=== PATIENT | male | born 1965 | race African-American/Black ===

== ENCOUNTER 2017-12-22 08:48 | Day surgery (SDC) | payer OTHER | END 2017-12-22 15:55 | disposition home or self-care (01) | LOC: GIL 08:48 | DX: Z12.11 Encounter for screening for malignant neoplasm of colon (principal); D12.2 Benign neoplasm of ascending colon; D12.3 Benign neoplasm of transverse colon; K57.90 Diverticulosis of intestine, part unspecified, without perforation or abscess without bleeding; I10 Essential (primary) hypertension; E78.5 Hyperlipidemia, unspecified | CPT/HCPCS: 45380; 88305 ==

== ENCOUNTER 2017-12-28 10:37 | Inpatient (IN) | payer OTHER, MEDICAID ==
[2017-12-28] MEDS: SOD CHLORIDE 0.9% 1,000 ML IV ×2 (11:10→22:48)
[2017-12-28 11:15] LABS: ADD MAN DIFF? NO
[2017-12-28 11:23] LABS: WHITE BLOOD COUNT 4.9 10^3/ul (4.8-10.8)
[2017-12-28 11:23] LABS: BASOPHILS % 0.6 % (0.0-2.0); EOSINOPHILS # 0.2 10^3/ul (0.0-0.5); EOSINOPHILS % 3.5 % (0.0-7.0); HEMATOCRIT 38.5 % (42.0-52.0); HEMOGLOBIN 12.5 g/dl (14.0-18.0); LYMPHOCYTES # 2.1 10^3/ul (0.8-2.9); LYMPHOCYTES % 43.6 % (15.0-51.0); MEAN CORPUSCULAR HEMOGLOBIN 26.6 pg (29.0-33.0); MEAN CORPUSCULAR HGB CONC 32.5 g/dl (32.0-37.0); MEAN CORPUSCULAR VOLUME 81.9 fl (82.0-101.0); MEAN PLATELET VOLUME 9.8 fl (7.4-10.4); MONOCYTE # 0.6 10^3/ul (0.3-0.9); MONOCYTES % 11.5 % (0.0-11.0); NEUTROPHILS % 40.6 % (39.0-77.0); PLATELET COUNT 238 10^3/UL (140-415)
[2017-12-28 11:50] LABS: ALANINE AMINOTRANSFERASE 45 IU/L (13-69); ALBUMIN 4.5 g/dl (3.3-4.9); ALBUMIN/GLOBULIN RATIO 1.36; ALKALINE PHOSPHATASE 59 IU/L (42-121); AMYLASE 40 U/L (11-123); ANION GAP 13 (8-16); ASPARTATE AMINO TRANSFERASE 36 IU/L (15-46); BILIRUBIN,INDIRECT 0.2 mg/dl (0-1.1); BILIRUBIN,TOTAL 0.2 mg/dl (0.2-1.3); BLOOD UREA NITROGEN 15 mg/dl (7-20); CARBON DIOXIDE 28 mmol/L (21-31); CHLORIDE 105 mmol/L (97-110); CREATININE 0.86 mg/dl (0.61-1.24); GLUCOSE 111 mg/dl (70-220); LIPASE 61 U/L (23-300); POTASSIUM 3.3 mmol/L (3.5-5.1); SODIUM 143 mmol/L (135-144); TOTAL PROTEIN 7.8 g/dl (6.1-8.1)
[2017-12-28 11:55] LABS: INR 0.95; PROTIME 12.8 Sec (11.9-14.9)
[2017-12-28 11:56] LABS: PARTIAL THROMBOPLASTIN TIME 27.8 Sec (25.0-35.0)
[2017-12-28] MEDS ORDERED: ACETAMINOPHEN 325 MG TAB PO ×2 (13:00→15:00)
[2017-12-28] MEDS ORDERED: ONDANSETRON 4 MG INJ IV ×2 (13:00→15:00)
[2017-12-28] MEDS ORDERED: ACETAMINOPHEN 650 MG SUPP PR (15:00)
[2017-12-28] MEDS ORDERED: MAGNESIUM HYDROXIDE 30ML CUP PO (15:00)
[2017-12-28] MEDS ORDERED: DOCUSATE SODIUM 100 MG CAP PO (15:00)
[2017-12-28] MEDS ORDERED: NACL 0.9% 3 ML SYG IV (15:00)
[2017-12-28] MEDS ORDERED: BISACODYL 10 MG SUPP PR (15:00)
[2017-12-28] MEDS ORDERED: morphine 2 MG INJ IV (15:00)
[2017-12-28] MEDS ORDERED: HYDROCODONE/APAP (5/325) TAB PO (15:00)
[2017-12-28] MEDS: LOSARTAN 50 MG TAB PO (15:30)
[2017-12-28] MEDS: AMLODIPINE 5 MG TAB PO (15:30)
[2017-12-28] MEDS: HYDROCHLOROTHIAZIDE 25 MG TAB PO (15:30)
[2017-12-28] MEDS ORDERED: PEG/ELECTROLYTES 4L BTL PO (19:30)
[2017-12-28] MEDS: ATORVASTATIN 10 MG TAB PO (20:35)
[2017-12-28] MEDS: DOXAZOSIN 2 MG TAB PO (20:35)
[2017-12-28] MEDS: PEG/ELECTROLYTES 4L BTL PO (21:32)
[2017-12-28] MEDS: POTASSIUM CHLORIDE (SR) 20 MEQ TAB PO (21:41)
[2017-12-28 22:51] LABS: HEMATOCRIT 27.7 % (42.0-52.0); HEMOGLOBIN 9.2 g/dl (14.0-18.0)
[2017-12-29] MEDS: POTASSIUM CHLORIDE 100 ML IVPB ×2 (00:35→03:45)
[2017-12-29] MEDS: SOD CHLORIDE 0.9% 1,000 ML IV ×3 (00:35→20:30)
[2017-12-29] MEDS: HYDROCODONE/APAP (5/325) TAB PO (02:27)
[2017-12-29] MEDS: PANTOPRAZOLE 40 MG INJ IV (06:30)
[2017-12-29] MEDS ORDERED: LIDOCAINE 2% (SDV) 5 ML INJ (07:00)
[2017-12-29 07:22] LABS: ADD MAN DIFF? NO
[2017-12-29 07:26] LABS: WHITE BLOOD COUNT 6.4 10^3/ul (4.8-10.8)
[2017-12-29 07:26] LABS: BASOPHILS % 0.2 % (0.0-2.0); EOSINOPHILS % 0.2 % (0.0-7.0); HEMOGLOBIN 8.6 g/dl (14.0-18.0); LYMPHOCYTES # 1.4 10^3/ul (0.8-2.9); LYMPHOCYTES % 21.8 % (15.0-51.0); MEAN CORPUSCULAR HEMOGLOBIN 27.7 pg (29.0-33.0); MEAN CORPUSCULAR HGB CONC 33.1 g/dl (32.0-37.0); MEAN CORPUSCULAR VOLUME 83.9 fl (82.0-101.0); MEAN PLATELET VOLUME 10.1 fl (7.4-10.4); MONOCYTE # 0.5 10^3/ul (0.3-0.9); MONOCYTES % 7.5 % (0.0-11.0); NEUTROPHIL # 4.5 10^3/ul (1.6-7.5); NEUTROPHILS % 69.8 % (39.0-77.0); PLATELET COUNT 203 10^3/UL (140-415); RED CELL DISTRIBUTION WIDTH 14.4 % (11.5-14.5)
[2017-12-29 07:47] LABS: ALANINE AMINOTRANSFERASE 41 IU/L (13-69); ALBUMIN 3.3 g/dl (3.3-4.9); ALBUMIN/GLOBULIN RATIO 1.13; ALKALINE PHOSPHATASE 37 IU/L (42-121); ANION GAP 11 (8-16); ASPARTATE AMINO TRANSFERASE 22 IU/L (15-46); BILIRUBIN,INDIRECT 0.5 mg/dl (0-1.1); BILIRUBIN,TOTAL 0.5 mg/dl (0.2-1.3); BLOOD UREA NITROGEN 15 mg/dl (7-20); CALCIUM 8.2 mg/dl (8.4-10.2); CARBON DIOXIDE 28 mmol/L (21-31); CHLORIDE 106 mmol/L (97-110); CHOLESTEROL 102 mg/dl (100-200); CREATININE 0.82 mg/dl (0.61-1.24); GLUCOSE 116 mg/dl (70-220); HDL CHOLESTEROL 33 mg/dl (28-71); LDL CHOLESTEROL,CALCULATED 57 mg/dl; POTASSIUM 3.6 mmol/L (3.5-5.1); SODIUM 141 mmol/L (135-144); TOTAL PROTEIN 6.2 g/dl (6.1-8.1); TRIGLYCERIDES 59 mg/dl (0-149)
[2017-12-29 07:54] LABS: HEMOGLOBIN A1C 6.1 % (0-5.9)
[2017-12-29 08:02] LABS: FREE THYROXINE INDEX (Calc) 2.51 ug/ml (0.65-3.89)
[2017-12-29 08:03] LABS: T3 UPTAKE 37.4 % (23.5-40.5); T4 (THYROXINE) 6.7 ug/dl (5.5-11.0)
[2017-12-29 08:16] LABS: THYROID STIMULATING HORMONE 0.965 MIU/L (0.465-4.680)
[2017-12-29] MEDS: LOSARTAN 50 MG TAB PO (08:56)
[2017-12-29] MEDS: HYDROCHLOROTHIAZIDE 25 MG TAB PO (08:56)
[2017-12-29] MEDS: AMLODIPINE 5 MG TAB PO (08:57)
[2017-12-29] MEDS ORDERED: PROPOFOL 40 ML (11:05)
[2017-12-29] MEDS ORDERED: MIDAZOLAM 1 MG/ML 2 ML INJ (11:05)
[2017-12-29] MEDS ORDERED: MEPERIDINE 25 MG INJ IV (12:00)
[2017-12-29] MEDS ORDERED: ONDANSETRON 4 MG INJ IV (12:00)
[2017-12-29] MEDS ORDERED: HYDROmorphONE 1 MG/5 ML IV SYRINGE IV (12:00)
[2017-12-29] MEDS ORDERED: morphine (1 MG/ML) 10ML SYRINGE IV (12:00)
[2017-12-29] MEDS ORDERED: FENTAnyl 50 MCG/ML VIAL IV (12:00)
[2017-12-29] MEDS ORDERED: OXYCODONE/ACETAMINOPHEN (5/325) TAB PO (12:00)
[2017-12-29] MEDS ORDERED: DIPHENHYDRAMINE 50 MG INJ IV (12:00)
[2017-12-29] MEDS: DOXAZOSIN 2 MG TAB PO (20:24)
[2017-12-29] MEDS: ATORVASTATIN 10 MG TAB PO (21:00)
[2017-12-30] MEDS: PANTOPRAZOLE 40 MG INJ IV (05:38)
[2017-12-30] MEDS: SOD CHLORIDE 0.9% 1,000 ML IV ×2 (06:30→15:40)
[2017-12-30] MEDS: HYDROCHLOROTHIAZIDE 25 MG TAB PO (08:41)
[2017-12-30] MEDS: LOSARTAN 50 MG TAB PO (08:41)
[2017-12-30] MEDS: AMLODIPINE 5 MG TAB PO (08:41)
[2017-12-30 11:16] LABS: ADD MAN DIFF? NO
[2017-12-30 11:27] LABS: BASOPHILS % 0.3 % (0.0-2.0); EOSINOPHILS # 0.1 10^3/ul (0.0-0.5); EOSINOPHILS % 1.2 % (0.0-7.0); HEMATOCRIT 24.7 % (42.0-52.0); LYMPHOCYTES # 2.1 10^3/ul (0.8-2.9); LYMPHOCYTES % 34.9 % (15.0-51.0); MEAN CORPUSCULAR HEMOGLOBIN 26.8 pg (29.0-33.0); MEAN CORPUSCULAR HGB CONC 32.4 g/dl (32.0-37.0); MEAN CORPUSCULAR VOLUME 82.9 fl (82.0-101.0); MEAN PLATELET VOLUME 10.3 fl (7.4-10.4); MONOCYTE # 0.5 10^3/ul (0.3-0.9); MONOCYTES % 8.4 % (0.0-11.0); NEUTROPHIL # 3.3 10^3/ul (1.6-7.5); PLATELET COUNT 193 10^3/UL (140-415); RED BLOOD COUNT 2.98 10^6/ul (4.70-6.10); RED CELL DISTRIBUTION WIDTH 14.6 % (11.5-14.5)
[2017-12-30 16:02] LABS: IMMEDIATE SPIN CROSSMATCH 1 4
[2017-12-30] MEDS: ATORVASTATIN 10 MG TAB PO (20:41)
[2017-12-30] MEDS: DOXAZOSIN 2 MG TAB PO (20:41)
[2017-12-31] MEDS: SOD CHLORIDE 0.9% 1,000 ML IV (02:30)
[2017-12-31] MEDS: PANTOPRAZOLE 40 MG INJ IV (05:51)
[2017-12-31 07:36] LABS: ADD MAN DIFF? NO
[2017-12-31 07:43] LABS: BASOPHILS % 0.4 % (0.0-2.0); EOSINOPHILS # 0.1 10^3/ul (0.0-0.5); EOSINOPHILS % 1.6 % (0.0-7.0); HEMATOCRIT 28.9 % (42.0-52.0); HEMOGLOBIN 9.4 g/dl (14.0-18.0); LYMPHOCYTES # 2.2 10^3/ul (0.8-2.9); LYMPHOCYTES % 29.9 % (15.0-51.0); MEAN CORPUSCULAR HEMOGLOBIN 27.2 pg (29.0-33.0); MEAN CORPUSCULAR HGB CONC 32.5 g/dl (32.0-37.0); MEAN CORPUSCULAR VOLUME 83.8 fl (82.0-101.0); MEAN PLATELET VOLUME 10.3 fl (7.4-10.4); MONOCYTE # 0.5 10^3/ul (0.3-0.9); MONOCYTES % 7.2 % (0.0-11.0); NEUTROPHIL # 4.5 10^3/ul (1.6-7.5); NEUTROPHILS % 60.4 % (39.0-77.0); PLATELET COUNT 201 10^3/UL (140-415); RED BLOOD COUNT 3.45 10^6/ul (4.70-6.10); RED CELL DISTRIBUTION WIDTH 14.7 % (11.5-14.5)
[2017-12-31 07:43] LABS: WHITE BLOOD COUNT 7.5 10^3/ul (4.8-10.8)
[2017-12-31 08:12] LABS: ANION GAP 9 (8-16); BLOOD UREA NITROGEN 11 mg/dl (7-20); CALCIUM 8.7 mg/dl (8.4-10.2); CARBON DIOXIDE 31 mmol/L (21-31); CHLORIDE 105 mmol/L (97-110); CREATININE 1.03 mg/dl (0.61-1.24); GLUCOSE 102 mg/dl (70-220); POTASSIUM 3.2 mmol/L (3.5-5.1); SODIUM 142 mmol/L (135-144)
[2017-12-31] MEDS: HYDROCHLOROTHIAZIDE 25 MG TAB PO (08:42)
[2017-12-31] MEDS: LOSARTAN 50 MG TAB PO (08:42)
[2017-12-31] MEDS: AMLODIPINE 5 MG TAB PO (08:43)
[2017-12-31] MEDS: POTASSIUM CHLORIDE (SR) 20 MEQ TAB PO (10:44)
== END 2017-12-31 13:08 | disposition home or self-care (01) | DRG 920 ==
LOC: E/R 10:37 → MS4 13:05
PROC: 0W3P8ZZ Control Bleeding in Gastrointestinal Tract, Via Natural or Artificial Opening Endoscopic (ICD-10-PCS; principal; 2017-12-29 11:00)
PROC: 0DBH8ZX Excision of Cecum, Via Natural or Artificial Opening Endoscopic, Diagnostic (ICD-10-PCS; 2017-12-29 11:00)
DX: K91.840 Postprocedural hemorrhage of a digestive system organ or structure following a digestive system procedure (principal); Z68.41 Body mass index [BMI] 40.0-44.9, adult; R00.1 Bradycardia, unspecified; I10 Essential (primary) hypertension; E66.01 Morbid (severe) obesity due to excess calories; D12.0 Benign neoplasm of cecum; K64.9 Unspecified hemorrhoids; E78.5 Hyperlipidemia, unspecified; Y84.8 Other medical procedures as the cause of abnormal reaction of the patient, or of later complication, without mention of misadventure at the time of the procedure; Y92.009 Unspecified place in unspecified non-institutional (private) residence as the place of occurrence of the external cause
CPT/HCPCS: 36430; 78278; 80048; 80053; 80061; 82150; 83036; 83690; 83735; 84100; 84436; 84443; 84479; 85014; 85018; 85025; 85610; 85730; 86850; 86900; 86901; 86920; 88305; 93005; 99285-25